=== PATIENT | female | born 1970 | race Caucasian/White ===

== ENCOUNTER 2017-10-27 15:17 | Outpatient (CLI) | payer OTHER ==
--- NOTE | 2017-10-27 18:41 | MRI ---
MRI RIGHT WRIST: 10/27/2017 PROVIDED CLINICAL HISTORY: Right wrist pain. FINDINGS: The dorsal extensor and volar flexor tendons demonstrate an intact MR appearance. The intrinsic wrist ligaments and TFC are suboptimally evaluated in the absence of joint distention b ut appear grossly normal. The amount of fluid within the radial carpal, mid carpal, and distal radial ulnar joint appears physi ologic. There is marrow edema involving the volar aspects of the capitate and hamate without linear signal al teration to suggest fracture. There is noncircumscribed fluid signal intensity within the subcutaneous adipose layer at the dorsal- ulnar aspect of the wrist. Regional muscular signal appears unremarkable. Alignment appears anatomi c. IMPRESSION: 1. No evidence for internal derangement. 2. Marrow edema compatible with contusion involving the capitate and hamate. No linear signal alter ation to suggest fracture. 3. Nonspecific fluid signal intensity in the subcutaneous adipose layer, at the dorsal-ulnar aspect of the wrist. This may reflect bruising or edema. POS: [facility]
== END 2017-10-27 15:18 | disposition home or self-care (01) ==
LOC: SCSMRI 15:17
PROVIDERS: ATTEND Family Medicine
DX: S69.81XD Other specified injuries of right wrist, hand and finger(s), subsequent encounter (principal); R60.0 Localized edema

== ENCOUNTER 2018-02-01 15:03 | Outpatient (CLI) | payer OTHER ==
[~2018-02-01 15:03] MED LIST: Gadobenate Dimeglumine 529 MG/1 ML (20ML VIAL) ONE
--- NOTE | 2018-02-01 19:29 | MRI ---
MR OF THE RIGHT WRIST WITH AND WITHOUT CONTRAST: Indication: Concern for tear of the TFC Technique: Multiplanar, multisequence MRI images were obtained of the right wrist with and without co ntrast. The physician office was contacted with the recommendation of an MR arthrogram, however, the request was for a with and without IV contrast examination. Dr. Kuhn's office verified that this exam order was as intended. Comparison: Prior MR examination, 10-27-17. FINDINGS: The extent of the contusion within the marrow space of the proximal capitate and hamate appears sligh tly less prominent than seen on the comparison examination. The scapholunate, lunate, triquetral and extrinsic ligaments of the wrist appear grossly intact. No definite acute fracture is demonstrated. T he visualized aspects of the TFC appear within normal limits on this non-arthrogram evaluation. The r adial ulnar ligaments appear within normal limits. There is some mild tendinosis of the ECU tendon at the level of the ulnar head without evidence of definite tendonitis. A small amount of fluid is seen within the second dorsal extensor tendon sheath without na tendinosis. The FCR and FCU tendon dariana ear within normal limits. The carpal tunnel contents appear within normal limits. No definite abnorma l region of enhancement is demonstrated. There is some mild suspected granulation tissue involving th e proximal aspect of the capitate and hamate on the post contrast series. IMPRESSION: 1. No discrete TFC tear demonstrated. 2. Slightly less prominent bone marrow edema and contusion involving the capitate and hamate. 3. Mild tendinosis of the ECU tendon at the level of the ulnar head. 4. Mild tenosynovitis of the second dorsal compartment. 5. Subcutaneous edema involving the dorsal ulnar aspect of the left wrist seen on the comparison exam ination is no longer apparent. POS: OFF
== END 2018-02-01 15:04 | disposition home or self-care (01) ==
LOC: BICMRI 15:03
PROVIDERS: ATTEND Orthopaedic Surgery Hand Surgery
DX: S63.591A Other specified sprain of right wrist, initial encounter (principal); S60.211A Contusion of right wrist, initial encounter; M67.833 Other specified disorders of tendon, right wrist; M65.9 Synovitis and tenosynovitis, unspecified
CPT/HCPCS: A9579

== ENCOUNTER 2018-02-23 07:01 | Day surgery (SDC) | payer OTHER ==
[2018-02-22 10:24] VITALS: BMI 26.2
[2018-02-23] MEDS ORDERED: Midazolam HCl 2 mg/2 ml Vial ONE ×2 (07:29→10:53)
[2018-02-23] MEDS ORDERED: Fentanyl 100 MCG/2 ML VIAL ONE ×2 (07:29→13:44)
[2018-02-23 07:34] LABS: #Basophils 0.1 thou/uL (0.0-0.2); #Eosinphils 0.2 thou/uL (0.0-0.7); #Lymphocytes 2.4 thou/uL (1.20-3.40); #Monocytes 0.5 thou/uL (0.11-0.59); #Neutrophils 3.4 thou/uL (1.40-6.50); %Basophils 1.1 % (0.0-1.0); %Lymphocytes 35.9 % (21.0-51.0); %Monocytes 7.9 % (0.0-10.0); Hemoglobin 14.6 g/dL (12.0-16.0); Mean Corpuscular Hemoglobin 31.6 pg (27.0-31.0); Mean Corpuscular Volume 95.7 fL (78.0-98.0); Mean Platelet Volume 6.5 fL (7.4-10.4); Platelet Count 252 thou/uL (130-400); RBC Distribution Width 11.2 % (11.5-14.5); Red Blood Cell (RBC) Count 4.63 mill/uL (4.20-5.40); White Blood Cell (WBC) Count 6.6 thou/uL (4.8-10.8)
[2018-02-23 07:53] LABS: Anion Gap 10 mmol/L (10-20); BUN (Urea Nitrogen) 10 mg/dL (7.0-18.7); Calc. Creatinine Clearance 89 mL/min (70-130); Calcium 9.6 mg/dL (7.8-10.44); Carbon Dioxide 28 mmol/L (22-29); Chloride 105 mmol/L (98-107); Estimated GFR-MDRD 70; Glucose 114 mg/dL (70-105); Potassium 4.5 mmol/L (3.5-5.1); Sodium 138 mmol/L (136-145)
--- NOTE | 2018-02-23 08:49 | RAD ---
2 VIEWS CHEST: Date: 02/23/18 COMPARISON: None. HISTORY: Preoperative radiograph. FINDINGS: Two views of the chest show normal sized cardiomediastinal silhouette. There is no evidence of consol idation, mass, or pleural effusion. The bones are unremarkable. IMPRESSION: No evidence of acute cardiopulmonary disease. POS: [facility]
[2018-02-23 09:11] LABS: Bilirubin Negative (Negative); Blood, Urine Negative (Negative); Clarity CLEAR (Clear); Glucose, Urine (Dipstick) Negative (Negative); Leukocyte Negative (Negative); Nitrite Negative (Negative); Protein, Urine (Dipstick) Negative (Neg-Trace); Specific Gravity, Urine 1.011 (1.002-1.036); Urobilinogen 0.2 mg/dL (0.2-1.0); pH, Urine 7.5 (5.0-9.0)
[2018-02-23] MEDS ORDERED: Betamet Acet/Betamet Na Ph 30 MG/5 ML VIAL ONE (10:51)
[2018-02-23] MEDS ORDERED: Bupivacaine PF 0.5% 30 ML VIAL ONE (10:51)
[2018-02-23] MEDS ORDERED: EPINEPHrine 1 MG/ML AMP ONE (10:51)
[2018-02-23] MEDS ORDERED: Bacitracin Zinc Ointment 30 gm TUBE ONE (10:51)
[2018-02-23] MEDS ORDERED: Fentanyl 250 MCG/5 ML VIAL ONE (10:53)
[2018-02-23] MEDS ORDERED: Morphine 4 MG/ML VIAL ONE (10:54)
[2018-02-23] MEDS ORDERED: CEFAZOLIN 2 GM/50 ML BAG ONE (11:01)
[2018-02-23] MEDS ORDERED: Promethazine HCl 25 MG/ML VIAL ONE (13:45)
[2018-02-23] MEDS ORDERED: Ketorolac Tromethamine 30 MG/ML VIAL ONE (14:13)
--- NOTE | 2018-02-24 00:30 | OP ---
DATE OF PROCEDURE: 02/23/2018 PREOPERATIVE DIAGNOSES: 1. Right wrist synovitis. 2. Right extensor carpi ulnaris tendonitis. 3. Right triangular fibrocartilage tear. POSTOPERATIVE DIAGNOSES: 1. Right wrist synovitis of both compartments of the radiocarpal and ulnocarpal joint. 2. Right extensor carpi ulnaris tenosynovitis with some thickening of the tenosynovium found with open procedure. 3. Right posterior ulnar capsule tear identified intra-articular, extending just directly ulna to the pisotriquetral joint and just deep to the extensor carpi ulnaris sheath. 4. Posterior radial grade 2 chondromalacia, posterior radius almost to the post volar, mid volar radius almost to its capsular reflection where it was 1 cm long x 5 mm wide area with fraying and underlying grade 2 changes. Also some mild fraying of the scapholunate interval ligament, but intact and mild fraying of the lunotriquetral area, but no true tears. PROCEDURES PERFORMED: 1. Arthroscopic wrist debridement. 2. Arthroscopic triangular fibrocartilage complex tear resection. 3. Arthroscopic synovectomy. 4. Arthroscopic radial chondroplasty; all at the right wrist. 5. Open extensor carpi ulnaris tenosynovectomy. 6. Open posterior ulnar capsule repair, 7 to 8 mm tear. Instability was not found. TOURNIQUET TIME: 27 minutes. ESTIMATED BLOOD LOSS: 10 mL. INJECTABLE: A total of 20 mL of 0.5% Marcaine; 5 intra-articular, 10 at the open wound and 5 divided in equal between the 2 portals. DESCRIPTION OF PROCEDURE: After successful general LMA technique, the limb was prepped and draped. The patient had time-out done appropriately and the arm was sterilely prepped, draped, placed in an in-line Arthrex tower for wrist arthroscopy with finger traps well applied, well fitting in the index and long finger. Once we confirmed position, and reaffirmed that we had identified appropriate site, we established a 3-4, 6U, 6R portals. Panoramic view of the wrist revealed marked synovitis especially in the radiocarpal area volarly and visualized this area. We saw a very approximately 1.5 cm long x 3 to 4 mm wide grade 2 chondromalacia, which we resected of any loose fronds. The same type of chondromalacia was seen over the scapholunate area and a 5 mm area and a 6 mm area over lunotriquetral area and the scapholunate area were resected, showed a stable ligament without tear. Once we finished the synovectomy here, we then switched portals. We begin with marked amount of synovitis in the ulnocarpal joint, and this was resected. We then visualized triangular fibrocartilage on the radial central region. There was the wreck perpendicular fronds of irritation attached, but underneath, there was no true tear with probing and we resected these fronds with a formal resection of a partial tear of triangular fibrocartilage. The ulnar aspect was intact, but we saw some redundancy and when I probed this, we saw a capsular tear coming from the side wall distal to the triangular fibrocartilage and just at the volar edge of the triquetrum. We then removed the arthroscope, inflated the tourniquet after exsanguination of the limb to 250 mmHg pressure, made a zig-zag incision just deep to the extensor carpi ulnaris tendon. We carried through skin and subcutaneous tissue identifying the superficial ulnar nerve and protecting them. We worked on both sides of it, we then opened the sheath, saw the subsheath intact, but we saw some fraying, some synovitis, synovial thickening without attrition of the ECU sheath, so a formal tenosynovectomy was performed here. We then turned our attention to deep to this, dissected down, began to dissect across the capsule and we saw a hole approximately 6 mm with the capsular flap attached to it consistent with the intra-articular findings we had seen. This was debrided gently, and then repaired with interrupted 5-0 buried suture [id number] knot x4 until we had it completely tight. There was no subluxation whatsoever of the ulnar styloid at this point. Sutures were cut. We had finished the tenosynovectomy of ECU and then performed the closure of the ECU sheath with 2-0 Vicryl in a running fashion, interrupted [id number], 3-0 Vicryl was used to close the retinaculum, the tourniquet was deflated. We closed the subcutaneous tissue with a running 4-0 Monocryl and skin with 4-0 nylon interrupted mattress pattern. Ports were closed with 4-0 nylon interrupted and we did inject with the Marcaine after this. The patient then had the portals closed with simple 4-0 nylon suture, we finished injection as described above and placed in a dressing with sugar-tong splint. She left the operating room without evidence of anesthetic or operative complication. Job ID: [id number]
== END 2018-02-23 15:40 | disposition home or self-care (01) ==
LOC: SDC 07:01
PROVIDERS: ATTEND Orthopaedic Surgery Hand Surgery
PROC: 0LB50ZZ Excision of Right Lower Arm and Wrist Tendon, Open Approach (ICD-10-PCS; principal; 2018-02-23)
PROC: 0RBN4ZZ Excision of Right Wrist Joint, Percutaneous Endoscopic Approach (ICD-10-PCS; principal; 2018-02-23)
DX: S63.591A Other specified sprain of right wrist, initial encounter (principal); M65.88 Other synovitis and tenosynovitis, other site; Z88.5 Allergy status to narcotic agent
CPT/HCPCS: 71046; 80048; 81003; 85025; 96374; J0131; J0171; J0702; J1885; J2250; J2270; J2550; J3010; S0020

== ENCOUNTER 2018-06-17 11:07 | Outpatient (CLI) | payer OTHER ==
--- NOTE | 2018-06-17 12:44 | CT ---
FCT of the right wrist with and without IV contrast INDICATION: History of complex tear of the tricompartmental cartilage of the right wrist with continu ed right wrist pain Contrast: 70 cc of Isovue 370 COMPARISON: MRI of the right wrist dated February 01, 2018 FINDINGS: No acute fracture or subluxation is evident. There is ulnar minus configuration at the DRUJ. The bone mineralization appears within normal limits. No area of abnormal enhancement is grossly evident. Sof t tissues appear within normal limits within the limitations of the CT evaluation. No drainable fluid collection is evident. IMPRESSION: No acute osseous abnormality. Mild ulnar minus configuration at the DRUJ.
== END 2018-06-17 11:08 | disposition home or self-care (01) ==
LOC: BICCT 11:07
PROVIDERS: ATTEND Orthopaedic Surgery Hand Surgery
DX: S63.501A Unspecified sprain of right wrist, initial encounter (principal); M25.331 Other instability, right wrist

== ENCOUNTER 2022-02-16 10:22 | Emergency (ER) | payer OTHER ==
[2022-02-16] MEDS ORDERED: Ketorolac Tromethamine 30 MG/ML VIAL ONE (10:54)
[2022-02-16] MEDS ORDERED: Ondansetron ODT 4 MG TAB ONE (10:54)
[2022-02-16] MEDS ORDERED: Dicyclomine 20 MG/2 ML VIAL ONE (10:54)
[2022-02-16] MEDS ORDERED: Iopamidol-370 76% 500 ML 1 ML ONE (11:01)
[2022-02-16 11:16] LABS: #Eosinphils 0.2 thou/uL (0.0-0.7); #Lymphocytes 1.7 thou/uL (1.20-3.40); #Monocytes 0.4 thou/uL (0.11-0.59); #Neutrophils 3.4 thou/uL (1.40-6.50); %Basophils 0.7 % (0.0-1.0); %Eosinophils 3.1 % (0.0-10.0); %Lymphocytes 30.3 % (21.0-51.0); %Monocytes 7.1 % (0.0-10.0); %Neutrophils 58.8 % (42.0-75.0); Hemoglobin 13.9 g/dL (12.0-16.0); Mean Corpuscular HGB CONC 32.9 g/dL (32.0-36.0); Mean Corpuscular Hemoglobin 32.4 pg (27.0-31.0); Mean Corpuscular Volume 98.4 fl (78.0-98.0); Mean Platelet Volume 6.9 fL (7.4-10.4); Platelet Count 281 10x3/uL (130-400); RBC Distribution Width 11.4 % (11.5-14.5); White Blood Cell (WBC) Count 5.7 10x3/uL (4.8-10.8)
[2022-02-16 11:35] LABS: ALT (SGPT) 18 U/L (8-55); AST (SGOT) 16 U/L (5-34); Alkaline Phosphatase 78 U/L (40-110); Anion Gap 10 mmol/L (10-20); BUN (Urea Nitrogen) 6 mg/dL (7.0-18.7); Bilirubin, Total 0.4 mg/dL (0.2-1.2); Calc. Creatinine Clearance 0 mL/min (70-130); Calcium 9.1 mg/dL (7.8-10.44); Carbon Dioxide 27 mmol/L (22-29); Chloride 105 mmol/L (98-107); Estimated GFR 82; Globulin 2.9 g/dL (2.4-3.5); Glucose 119 mg/dL (70-105); Lipase 4 U/L (8-78); Potassium 4.7 mmol/L (3.5-5.1); Protein, Total 6.9 g/dL (6.0-8.3); Sodium 137 mmol/L (136-145)
[2022-02-16 11:43] LABS: SARS-CoV-2 NAA Rapid Test Not Detected (NotDetected)
[2022-02-16 13:10] LABS: Bilirubin Negative (Negative); Blood, Urine Negative (Negative); Clarity Clear (Clear); Glucose, Urine (Dipstick) Normal (Negative); Ketone, Urine Negative (Negative); Leukocyte Negative Leu/uL (Negative); Nitrite Negative (Negative); Protein, Urine (Dipstick) Negative (Neg-Trace); Specific Gravity, Urine 1.007 (1.002-1.036); Urobilinogen Normal mg/dL (Less than 2); pH, Urine 6.5 (5.0-9.0)
== END 2022-02-16 13:50 | disposition home or self-care (01) ==
LOC: ERS 10:22
DX: R10.813 Right lower quadrant abdominal tenderness (principal); R10.811 Right upper quadrant abdominal tenderness; Z20.822 Contact with and (suspected) exposure to COVID-19
CPT/HCPCS: 36415; 71045; 74177; 80053; 81003; 82550; 83690; 84484; 85025; 93005; 96372; 96374; J1885; Q0162; Q9967